=== PATIENT | male | born 2000 | race Hispanic/Latino ===

== ENCOUNTER 2025-03-15 15:16 | Emergency (ER) | payer OTHER ==
[~2025-03-15] VITALS: Ht 177.8 cm; Wt 77.0 kg
[2025-03-15] MEDS ORDERED: IBUP600T42 PO (16:01)
[2025-03-15 17:17] LABS: BASO # 0.1 10^3/uL (0.0-0.2); BASO % 0.8 % (0.0-1.0); EOS # 0.1 10^3/uL (0.0-0.5); EOS % 0.6 % (0.0-3.0); LYMPH # 2.5 10^3/uL (1.5-5.0); LYMPH % 27.6 % (24.0-44.0); MONO # 0.7 10^3/uL (0.0-0.8); MONO % 8.0 % (2.0-8.0); NEUTROPHILS # 5.6 10^3/uL (1.5-8.5); NEUTROPHILS % 62.3 % (36.0-66.0); PLATELET COUNT, AUTOMATED 318 10^3/uL (150-450)
[2025-03-15 17:39] LABS: CALCIUM LEVEL 9.3 MG/DL (8.5-10.1); CARBON DIOXIDE LEVEL 28 MMOL/L (20-31); CHLORIDE LEVEL 107 MMOL/L (98-107); CREATININE FOR GFR 1.06 MG/DL (0.70-1.30); GLOMERULAR FILTRATION RATE > 90.0 (>60); POTASSIUM SERUM 3.9 MMOL/L (3.5-5.1); SODIUM LEVEL 144 MMOL/L (136-145)
[2025-03-15] MEDS: LIDOCAINE 5% PATCH TD ONE (17:40)
[2025-03-15 17:48] LABS: INR 0.83
[2025-03-15] MEDS ORDERED: METH-1164 PO (18:29)
[2025-03-15 18:35] VITALS: BP 132/83; TEMP 97.9; O2SAT 98
== END 2025-03-15 18:41 | disposition home or self-care (01) ==
LOC: M ED 15:16
DX: M62.838 Other muscle spasm (principal)